=== PATIENT | male | born 1950 | race Caucasian/White ===

== ENCOUNTER 2018-07-02 02:18 | Outpatient (CLI) | payer MEDICARE, BC ==
[~2018-07-02 02:18] MED LIST: ASPI-1265 PO; BACL10TA PO; CETI10TA15 PO; CITA20TA19 PO; FEBU80TA PO; FENO160T13 PO; GABA-532 PO; INSU100V9 SQ; LEVO100T PO; OMEP20CA10 PO; SULF1TAB49 PO
== END 2018-07-02 23:59 | disposition home or self-care (01) ==
LOC: DIABETIC 02:18
PROVIDERS: ATTEND Specialist
DX: E10.9 Type 1 diabetes mellitus without complications (principal)
CPT/HCPCS: G0108

== ENCOUNTER 2019-03-18 10:07 | Observation (INO) | payer MEDICARE, BC ==
[~2019-03-18] VITALS: Ht 175.3 cm; Wt 99.7 kg
[2019-03-18] VITALS (29 sets, daily range): BP systolic 106–179; BP diastolic 51–99
[~2019-03-18 10:07] MED LIST changes: -OMEP20CA10 PO; +OMEP20CA15 PO
[2019-03-18] MEDS ORDERED: famotidine 10mg tablet PO ONE (10:45)
[2019-03-18] MEDS ORDERED: ringers solution, lacted 1,000 ML IV SCH ×2 (10:45→11:42)
[2019-03-18] MEDS ORDERED: famotidine 20mg tablet PO ONE (10:45)
[2019-03-18] MEDS ORDERED: cefazolin/dext.iso 2gm/100ml 100 ML IV ONE (10:45)
[2019-03-18 11:32] LABS: BASOPHILS # (AUTO) 0.1 X10'3 (0-0.2); BASOPHILS % (AUTO) 0.8 % (0-1); EOSINOPHILS # (AUTO) 0.6 X10'3 (0-0.9); EOSINOPHILS % (AUTO) 4.7 % (0-6); LYMPHOCYTES # (AUTO) 1.6 X10'3 (1.1-4.8); LYMPHOCYTES % (AUTO) 12.8 % (21-51); MEAN CORPUSCULAR HEMOGLOBIN 27.3 PG (27.0-31.0); MEAN CORPUSCULAR HGB CONC 32.1 g/dL (33.0-36.5); MEAN CORPUSCULAR VOLUME 85.1 FL (78-98); MEAN PLATELET VOLUME 7.6 FL (7.4-10.4); MONOCYTES # (AUTO) 0.7 X10'3 (0-0.9); MONOCYTES % (AUTO) 5.5 % (2-12); NEUTROPHILS # (AUTO) 9.5 X10'3 (1.8-7.7); NEUTROPHILS % (AUTO) 76.2 % (42-75); PRE OP HEMATOCRIT 30.5 % (42.0-52.0); PRE OP PLATELET COUNT 351 X10'3 (140-440); RED BLOOD COUNT 3.58 X10'6 (4.70-6.10); RED CELL DISTRIBUTION WIDTH 17.3 % (11.5-14.5)
[2019-03-18 11:45] LABS: PRE OP HEMOGLOBIN 9.8 g/dL (14.0-17.9)
[2019-03-18] MEDS ORDERED: ondansetron/PF 4mg/2ml inj IV PRN ×2 (11:45→18:10)
[2019-03-18] MEDS ORDERED: fentaNYL/PF 50MCG/1 ML 2ML syringe IV PRN (11:45)
[2019-03-18] MEDS ORDERED: hydrALAZINE 20mg/ml inj. IV PRN (11:45)
[2019-03-18] MEDS ORDERED: morphine 4 MG/ML inj SYRINge IV PRN (11:45)
[2019-03-18] MEDS ORDERED: labetalol 20mg/4ml (5mg/ml) syringe IV PRN (11:45)
[2019-03-18] MEDS ORDERED: GABA-530 PO (11:52)
[2019-03-18] MEDS ORDERED: AMLO5TAB PO (11:52)
[2019-03-18] MEDS ORDERED: FURO80TA87 PO (11:52)
[2019-03-18] MEDS ORDERED: CLON0.2T PO (11:52)
[2019-03-18] MEDS ORDERED: ALBU6.7H9 INH (11:52)
[2019-03-18] MEDS ORDERED: INSU100V37 SQ (11:52)
[2019-03-18 11:56] LABS: ALBUMIN 3.5 G/DL (3.4-5.0); ALBUMIN/GLOBULIN RATIO 0.8 (1.1-1.5); ALKALINE PHOSPHATASE 71 IU/L (46-116); BLOOD UREA NITROGEN 83 MG/DL (7-18); BUN/CREATININE RATIO 23.2 (5.4-32.0); CALCIUM 8.7 MG/DL (8.5-10.1); CHLORIDE 106 MMOL/L (99-107); CREATININE 3.58 MG/DL (0.60-1.10); PRE OP ALT 22 U/L (30-65); PRE OP ANION GAP 12 (8-16); PRE OP AST 22 U/L (10-37); PRE OP BILIRUB, TOTAL 0.2 MG/DL (0.0-1.0); PRE OP GLUCOSE 113 MG/DL (70-104); PRE OP POTASSIUM 4.2 MMOL/L (3.4-5.1); PRE OP SODIUM 139 MMOL/L (135-145); TOTAL CARBON DIOXIDE 21.2 MMOL/L (24-32); TOTAL PROTEIN 7.9 G/DL (6.4-8.2); eGFR 17 ML/MIN
[2019-03-18] MEDS ORDERED: LANTUS SOLOSTAR (12:04)
[2019-03-18] MEDS ORDERED: BUPIVAcaine/PF 2.5mg/ml (0.25%) 10ml vial ONE (13:03)
[2019-03-18] MEDS ORDERED: BUPIVACAINE liposomal/PF 13.3 MG/ML vial IM ONE (13:03)
[2019-03-18] MEDS ORDERED: MIDAZolam 5mg/5ml vial ONE (13:10)
[2019-03-18] MEDS ORDERED: fentaNYL/PF 50MCG/1 ML 2ML syringe ONE ×2 (13:10→17:28)
--- NOTE | 2019-03-18 14:30 | NUR ---
Received from OR via [facility], accompanied by Anesthesiologist DR FRYE and report given by Anesthesiologist. PT DROWSY, DENIES PAIN, DERMATOME LEVEL L-1. FOAM TAPE COVERING RECTUM. Addendum: 03/18/19 at 1534 by Danna Carpio RN Amended: Links added. Addendum: 03/18/19 at 1540 by Danna Carpio RN LATE ENTRY, PT HAS BILAT NEPHROSTOMY TUBES W/BAGS ATTACHED, EMPTIED IN OR PRIOR TO COMING TO PACU.
[2019-03-18] MEDS ORDERED: gabapentin 400mg capsule PO ONE (16:15)
[2019-03-18] MEDS ORDERED: gabapentin 100mg capsule PO ONE (16:35)
[2019-03-18] MEDS: morphine 4 MG/ML inj SYRINge IV PRN ×2 (17:06→17:18)
[2019-03-18] MEDS: fentaNYL/PF 50MCG/1 ML 2ML syringe IV PRN ×2 (17:31→17:49)
[2019-03-18] MEDS ORDERED: HYDROcodone/acetaminophen 10/325mg tab PO ONE (17:40)
[2019-03-18] MEDS ORDERED: mag hydrox/Alum hydrox/simeth 30ml oral suspension PO PRN (18:10)
[2019-03-18] MEDS ORDERED: dextrose 50%-water 50ml dispensing syringe IV PRN ×2 (18:10)
[2019-03-18] MEDS ORDERED: insulin Lispro (HumaLOG) vial - multi-dose SQ SCH (18:10)
[2019-03-18] MEDS ORDERED: acetaminophen 325mg tablet PO PRN (18:10)
[2019-03-18] MEDS ORDERED: glucagon, human recombinant 1mg kit SUBCUT PRN (18:10)
[2019-03-18] MEDS ORDERED: dextrose ORAL solution 15 GM/59 ML bottle PO PRN ×2 (18:10)
[2019-03-18] MEDS ORDERED: HYDROmorphone 1 mg/ml syringe IV ONE (18:20)
[2019-03-18] MEDS ORDERED: HYDROmorphone 1 mg/ml syringe ONE (18:22)
[2019-03-18] MEDS: HYDROmorphone/NS 1 mg/ml CADD 50 ML IV SCH ×5 (18:43→23:41)
[2019-03-18] MEDS ORDERED: benzocaine/benzethon 30gm ointment RC PRN (19:10)
--- NOTE | 2019-03-18 19:10 | NUR ---
PT VERY PAINFUL, MULTIPLE MEDICATIONS GIVEN, CALL INTO DR GALE AND UPDATED, PT WILL BE ADMITTED FOR PAIN CONTROL, PT SITTING, STANDING, LYING IN BED ATTEMPTING TO ASSIST W/PAIN RELIEF, KIRSTEN YOUSIF STARTED, REPORT CALLED TO RECEIVING RN, PT TRANSPORTED TO ROOM 345B VIA RNEY WITH CELL PHONE AND CLOTHING. Special Issues communicated to receiving nurse. YES. Addendum: 03/18/19 at 1920 by Danna Carpio RN Amended: Links added.
--- NOTE | 2019-03-18 19:20 | NUR ---
Received report from operations supervisor chemical cleaning. Patient to follow shortly.
--- NOTE | 2019-03-18 19:30 | NUR ---
Patient arrived to floor via gurney. Patient alert and declaring he is in pain. Reminded patient to push the button as he has a cadd pump. Patient being noisy and disruptive. Educated patient on controlling his emotions. Patient to room 354C and transferred self to bed. Post op vs initiated.
[2019-03-18] MEDS ORDERED: albuterol 2.5 MG/3 ML nebule NEB PRN (20:05)
--- NOTE | 2019-03-18 20:30 | NUR ---
Sitz bath set up for patient and encouraged patient to stay on it for 20 minutes for comfort .
[2019-03-18] MEDS ORDERED: FEBU40TA3 PO (20:38)
[2019-03-18] MEDS ORDERED: LISI-600 PO (20:45)
[2019-03-18] MEDS ORDERED: insulin glargine (Lantus) pen - multi-dose SQ SCH (21:00)
[2019-03-18] MEDS ORDERED: psyllium seed 3.4 gm packet PO SCH (21:00)
--- NOTE | 2019-03-18 21:00 | NUR ---
Patient has abilateral nephrostomy tubes. The left tube is draining yellow urine and the right tube is draining bloody urine. Patient states that this is his norm as it moves round. Addendum: 03/19/19 at 0601 by Marce Gilmore RN Amended: Links added.
[2019-03-18] MEDS: cloNIDine 0.1 mg tablet PO SCH (23:25)
[2019-03-18] MEDS: gabapentin 100mg capsule PO SCH (23:26)
[2019-03-19] VITALS: BP 153/63
[2019-03-19] MEDS: HYDROmorphone/NS 1 mg/ml CADD 50 ML IV SCH ×5 (01:00→09:00)
--- NOTE | 2019-03-19 05:45 | NUR ---
Unable to keep dressing in place d/t patient and also unable to get post op vs as patient was too restless and agitated during first half of shift. Patient would keep taking off the BP cuff and pulse ox to go sit on the toilet stating pain was too much. Patient was given a sitz bath and Cadd pump demand dose increased x1.5 for demand of 0.3. Patient eventually did go to sleep.
--- NOTE | 2019-03-19 06:23 | NUR ---
Patient in room [facility] 354. I have received report from Marce ARCE and had the opportunity to ask questions and assume patient care.
--- NOTE | 2019-03-19 06:40 | NUR ---
Problems reprioritized. Patient report given, questions answered & plan of care reviewed with [place] ARCE.
--- NOTE | 2019-03-19 06:52 | NUR ---
Patient in room [facility] 354. I have received report from Marce ARCE and had the opportunity to ask questions and assume patient care.
[2019-03-19 07:00] VITALS: BP 140/70
[2019-03-19] MEDS ORDERED: levoTHYROXINE 25mcg tablet PO SCH (07:00)
[2019-03-19 08:00] VITALS: BP 135/62
[2019-03-19] MEDS ORDERED: FEBUXOSTAT PO SCH (08:00)
[2019-03-19] MEDS ORDERED: CITALOpram 10mg tablet PO SCH (08:00)
[2019-03-19] MEDS ORDERED: lisinopril 20mg tablet PO SCH (08:00)
[2019-03-19] MEDS ORDERED: furosemide 40mg tablet PO SCH (08:00)
[2019-03-19] MEDS ORDERED: amLODIPine 5mg tablet PO SCH (08:00)
[2019-03-19] MEDS ORDERED: aspirin 81mg tablet.DR PO SCH (08:00)
[2019-03-19] MEDS ORDERED: LANTUS SCH (08:00)
[2019-03-19] MEDS: gabapentin 100mg capsule PO SCH ×2 (08:26→11:38)
[2019-03-19] MEDS: cloNIDine 0.1 mg tablet PO SCH (08:26)
[2019-03-19] MEDS ORDERED: fenofibrate 145mg tablet PO SCH (08:30)
--- NOTE | 2019-03-19 10:25 | NUR ---
Student Medication Administration: For this medication-pass time frame, all medication were reviewed, dispensed, administered and documented per hospital policy by [facility].
[2019-03-19] MEDS ORDERED: CADD PCA waste documentation MC SCH (11:05)
[2019-03-19 11:17] VITALS: BP 132/50
--- NOTE | 2019-03-19 11:47 | NUR ---
Sitz bath given to patient . DR Aragon in to see patient is for discharge. All cares given and instructions . patient awaiting ride home, appears stable for discharge.
--- NOTE | 2019-03-19 12:03 | NUR ---
patient discharged home vis private car, in stable condition 1200hrs
--- NOTE | 2019-03-21 16:31 | NUR ---
Case Management DC follow up: spoke to pt via telephone: reports, "very painful", able to ambulate, compliant and following all DC after care instructions. Denies SOB, resp distress, NV, dizziness, cp, emergent/acute general pain, HOPSON, blurry vision. pt denies abd pain, bloating, excess blood in stool, s/s to look for that would warrant 9-11/ER visit for evaluation. verbalizes understanding of follow up appts w/PCP/Soy. Understands meds, why prescribed, taking as ordered, no ase noted. all needs met, questions answered at DC no further questions at this time.
== END 2019-03-19 12:05 | disposition home or self-care (01) ==
LOC: PRE-OP 10:07 → SUR 3N 18:18
PROVIDERS: ADMIT Surgery; ATTEND Surgery
DX: K62.0 Anal polyp (principal); K60.3 Anal fistula; A63.0 Anogenital (venereal) warts; K62.6 Ulcer of anus and rectum; K62.89 Other specified diseases of anus and rectum
CPT/HCPCS: 36415; 45330; 46270; 46922; 80053; 82948; 83036; 84443; 85025; 87081; 93005; 96365; 96366; 96375; 96376; A6224; C9290; G0378; J1170; J1815; J2250; J2270; J3010; J3490; J7120; 88305; 88331; A4215; A4618; A6449; A7000

== ENCOUNTER 2019-05-28 07:13 | Day surgery (SDC) | payer MEDICARE, BC ==
[~2019-05-28] VITALS: Ht 175.3 cm; Wt 98.0 kg
[2019-05-28] VITALS (10 sets, daily range): BP systolic 110–124; BP diastolic 56–72
[~2019-05-28 07:13] MED LIST changes: +ALBU6.7H9 INH; -BACL10TA PO; +BUPIVAcaine/PF 2.5 mg/ml (0.25%) 30ml vial ONE; -CETI10TA15 PO; +CIPR-259 PO; +CLON0.2T PO; +FEBU40TA PO; -FEBU80TA PO; +FEXO180T94 PO; +FURO80TA87 PO; +GABA-530 PO; -GABA-532 PO; +HYDR-3972 PO; +INSU100V37 SQ; -INSU100V9 SQ; +LANTUS SOLOSTAR; +LISI-600 PO; -OMEP20CA15 PO; -SULF1TAB49 PO; +albuterol 2.5 MG/3 ML nebule NEB ONE; +cefazolin/dext.iso 2gm/100ml 100 ML IV ONE; +famotidine 20mg tablet PO ONE; +heparin sodium, porcine/PF 100unit/ml 5ML syringe ONE; +ringers solution, lacted 1,000 ML IV SCH
[2019-05-28] MEDS ORDERED: LIDOcaine 1% (10mg/ml) 2ml vial ONE (07:41)
[2019-05-28 08:07] LABS: BASOPHILS # (AUTO) 0.1 X10'3 (0-0.2); BASOPHILS % (AUTO) 1.1 % (0-1); EOSINOPHILS # (AUTO) 0.4 X10'3 (0-0.9); EOSINOPHILS % (AUTO) 4.6 % (0-6); LYMPHOCYTES # (AUTO) 1.2 X10'3 (1.1-4.8); LYMPHOCYTES % (AUTO) 15.1 % (21-51); MEAN CORPUSCULAR HEMOGLOBIN 29.3 PG (27.0-31.0); MEAN CORPUSCULAR VOLUME 88.6 FL (78-98); MEAN PLATELET VOLUME 7.6 FL (7.4-10.4); MONOCYTES # (AUTO) 0.6 X10'3 (0-0.9); MONOCYTES % (AUTO) 8.2 % (2-12); NEUTROPHILS # (AUTO) 5.4 X10'3 (1.8-7.7); PRE OP HEMATOCRIT 26.3 % (42.0-52.0); PRE OP PLATELET COUNT 256 X10'3 (140-440); RED BLOOD COUNT 2.97 X10'6 (4.70-6.10); RED CELL DISTRIBUTION WIDTH 17.1 % (11.5-14.5)
[2019-05-28 08:13] LABS: PRE OP HEMOGLOBIN 8.7 g/dL (14.0-17.9)
[2019-05-28 08:21] LABS: ALBUMIN 2.9 G/DL (3.4-5.0); ALBUMIN/GLOBULIN RATIO 0.7 (1.1-1.5); ALKALINE PHOSPHATASE 61 IU/L (46-116); BLOOD UREA NITROGEN 87 MG/DL (7-18); BUN/CREATININE RATIO 21.3 (5.4-32.0); CALCIUM 7.9 MG/DL (8.5-10.1); CHLORIDE 103 MMOL/L (99-107); CREATININE 4.09 MG/DL (0.60-1.10); PRE OP ALT 13 U/L (30-65); PRE OP ANION GAP 13 (8-16); PRE OP AST 23 U/L (10-37); PRE OP BILIRUB, TOTAL 0.3 MG/DL (0.0-1.0); PRE OP GLUCOSE 122 MG/DL (70-104); PRE OP POTASSIUM 4.4 MMOL/L (3.4-5.1); PRE OP SODIUM 136 MMOL/L (135-145); TOTAL CARBON DIOXIDE 19.6 MMOL/L (24-32); eGFR 15 ML/MIN
[2019-05-28] MEDS ORDERED: normal saline 1000ml 1,000 ML IV SCH (08:25)
[2019-05-28] MEDS ORDERED: sevoflurane 250ml liquid IH ONE (10:04)
[2019-05-28] MEDS ORDERED: fentaNYL/PF 50MCG/1 ML 2ML syringe ONE (10:09)
[2019-05-28] MEDS ORDERED: midazolam 2 mg/2 ml injection ONE (10:15)
[2019-05-28] MEDS ORDERED: ceFAZolin 1000mg inj ONE (10:24)
[2019-05-28] MEDS ORDERED: propofol inj 20 ML IV ONE (10:26)
[2019-05-28] MEDS ORDERED: LIDOcaine 2% (20mg/ml) 5ml vial ONE (10:26)
[2019-05-28] MEDS ORDERED: ondansetron/PF 4mg/2ml inj ONE (10:48)
--- NOTE | 2019-05-28 11:03 | NUR ---
ALL DC CRITERIA HAS BEEN MET. IV TAKEN OUT WITHOUT COMPLICATIONS. ALL INSTRUCTIONS COVERED AND ALL QUESTIONS ANSWERED. DRESSINGS CDI. OUT VIA WHEELCHAIR TO PERSONAL VEHICLE WHERE PATIENT WAS SECURED IN AND DRIVEN HOME BY FAMILY. PATIENT WITH 20G PIV IN LEFT UE. 2 KIDNEY BAGS WITH CLEAR URINE WITHIN, VSS. DENIES PAIN. ANTERIOR LEFT ABDOMEN DRESSING IS CDI WITH PD CATHETER PRESENT. 10L MASK 100% SATURATED. Addendum: 05/28/19 at 1118 by Merrick Henao RN, RN Amended: Links added.
[2019-05-28] MEDS ORDERED: normal saline 1000ml 1,000 ML IV ONE (11:09)
[2019-05-28] MEDS ORDERED: morphine 2 MG/ML inj. syringe IV PRN (11:10)
[2019-05-28] MEDS ORDERED: ondansetron/PF 4mg/2ml inj IV PRN (11:10)
[2019-05-28] MEDS ORDERED: HYDROcodone/acetaminophen 10/325mg tab PO ONE (11:55)
--- NOTE | 2019-05-28 12:33 | NUR ---
ALL DC CRITERIA HAS BEEN MET. IV TAKEN OUT WITHOUT COMPLICATIONS. ALL INSTRUCTIONS COVERED AND ALL QUESTIONS ANSWERED. DRESSINGS CDI. OUT VIA WHEELCHAIR TO PERSONAL VEHICLE WHERE PATIENT WAS SECURED IN AND DRIVEN HOME BY FAMILY. PATIENT ABDOMINAL DRESSING (L) IS STILL CDI. VSS. PATIENT REQUESTS TO GO HOME AT THIS TIME. DRESSING WITH ASSIST AND TAKEN HOME BY SIG OTHER. INFORMED PATIENT I WOULD CALL HIM IN REGARDS TO SCRIPT THAT IS TO BE PROVIEDED BY MD DIAZ. VSS. Addendum: 05/28/19 at 1236 by Merrick Henao RN, RN Amended: Links added.
== END 2019-05-28 12:23 | disposition home or self-care (01) ==
LOC: PAS 07:13
PROVIDERS: ATTEND Surgery
DX: I12.0 Hypertensive chronic kidney disease with stage 5 chronic kidney disease or end stage renal disease (principal); N18.6 End stage renal disease; E66.9 Obesity, unspecified; F17.200 Nicotine dependence, unspecified, uncomplicated; E03.9 Hypothyroidism, unspecified; E11.22 Type 2 diabetes mellitus with diabetic chronic kidney disease; I73.9 Peripheral vascular disease, unspecified; D64.9 Anemia, unspecified; M10.9 Gout, unspecified; M19.90 Unspecified osteoarthritis, unspecified site; Z79.899 Other long term (current) drug therapy; Z88.2 Allergy status to sulfonamides; Z86.73 Personal history of transient ischemic attack (TIA), and cerebral infarction without residual deficits; Z80.9 Family history of malignant neoplasm, unspecified; Z98.890 Other specified postprocedural states
CPT/HCPCS: 36415; 49421; 80053; 82948; 85025; C1750; J0690; J1642; J2001; J2250; J2270; J2405; J2704; J3010; J3490; J7030; J7120; A4215; A4618; A6449; A7000

== ENCOUNTER 2019-07-16 10:47 | Day surgery (SDC) | payer MEDICARE, BC ==
[2019-07-16] VITALS (7 sets, daily range): BP systolic 118–145; BP diastolic 71–84
[~2019-07-16] VITALS: Ht 175.3 cm; Wt 97.5 kg
[~2019-07-16 10:47] MED LIST changes: -BUPIVAcaine/PF 2.5 mg/ml (0.25%) 30ml vial ONE; -CIPR-259 PO; +ceFOXitin sod/dextrose 2g/50ml 50 ML IV ONE; -cefazolin/dext.iso 2gm/100ml 100 ML IV ONE; -heparin sodium, porcine/PF 100unit/ml 5ML syringe ONE
[2019-07-16] MEDS ORDERED: albuterol 2.5 MG/3 ML nebule NEB ONE (11:25)
[2019-07-16 12:30] LABS: BASOPHILS # (AUTO) 0.1 X10'3 (0-0.2); EOSINOPHILS # (AUTO) 0.7 X10'3 (0-0.9); EOSINOPHILS % (AUTO) 8.2 % (0-6); LYMPHOCYTES # (AUTO) 2.2 X10'3 (1.1-4.8); LYMPHOCYTES % (AUTO) 24.8 % (21-51); MEAN CORPUSCULAR HEMOGLOBIN 28.3 PG (27.0-31.0); MEAN CORPUSCULAR HGB CONC 32.4 g/dL (33.0-36.5); MEAN CORPUSCULAR VOLUME 87.3 FL (78-98); MEAN PLATELET VOLUME 7.7 FL (7.4-10.4); MONOCYTES # (AUTO) 0.6 X10'3 (0-0.9); MONOCYTES % (AUTO) 6.5 % (2-12); NEUTROPHILS # (AUTO) 5.3 X10'3 (1.8-7.7); NEUTROPHILS % (AUTO) 59.5 % (42-75); PRE OP HEMATOCRIT 32.2 % (42.0-52.0); PRE OP PLATELET COUNT 321 X10'3 (140-440); RED BLOOD COUNT 3.69 X10'6 (4.70-6.10); RED CELL DISTRIBUTION WIDTH 17.2 % (11.5-14.5)
[2019-07-16 12:33] LABS: PRE OP HEMOGLOBIN 10.4 g/dL (14.0-17.9)
[2019-07-16 12:42] LABS: ALBUMIN 3.2 G/DL (3.4-5.0); ALBUMIN/GLOBULIN RATIO 0.7 (1.1-1.5); ALKALINE PHOSPHATASE 77 IU/L (46-116); BLOOD UREA NITROGEN 65 MG/DL (7-18); BUN/CREATININE RATIO 17.8 (5.4-32.0); CALCIUM 8.2 MG/DL (8.5-10.1); CHLORIDE 102 MMOL/L (99-107); CREATININE 3.66 MG/DL (0.60-1.10); PRE OP ALT 12 U/L (30-65); PRE OP ANION GAP 13 (8-16); PRE OP AST 29 U/L (10-37); PRE OP BILIRUB, TOTAL 0.4 MG/DL (0.0-1.0); PRE OP GLUCOSE 103 MG/DL (70-104); PRE OP POTASSIUM 4.3 MMOL/L (3.4-5.1); PRE OP SODIUM 137 MMOL/L (135-145); TOTAL PROTEIN 7.6 G/DL (6.4-8.2); eGFR 17 ML/MIN
[2019-07-16] MEDS ORDERED: sevoflurane 250ml liquid IH ONE (14:56)
[2019-07-16] MEDS ORDERED: fentaNYL/PF 50MCG/1 ML 2ML syringe ONE (14:58)
[2019-07-16] MEDS ORDERED: midazolam 2 mg/2 ml injection ONE (15:26)
[2019-07-16] MEDS ORDERED: bacitracin 15gm ointment TP ONE (15:44)
[2019-07-16] MEDS ORDERED: ondansetron/PF 4mg/2ml inj ONE (15:54)
[2019-07-16] MEDS ORDERED: propofol inj 20 ML IV ONE ×2 (15:54)
[2019-07-16] MEDS ORDERED: LIDOcaine 2% (20mg/ml) 5ml vial ONE (15:54)
[2019-07-16] MEDS ORDERED: dexamethasone sod phosphate 4mg/ml inj. ONE (15:54)
--- NOTE | 2019-07-16 16:00 | NUR ---
Received from OR via BED, accompanied by Anesthesiologist DR ECKERT-- and report given by Anesthesiolgist. PATIENT A&OX4, DENIES PAIN, V/S WNL, NEUROVASCULAR CHECKS INTACT, 20G PIV LUE, SCD ON, BANDAIDS TO ABDOMEN CDI AND UROSTOMY TUBES 500CC OUT DRAINED IN OR
[2019-07-16] MEDS ORDERED: ondansetron/PF 4mg/2ml inj IV PRN (16:15)
[2019-07-16] MEDS ORDERED: proCHLORperazine 10 MG/2 ml inj IV PRN (16:15)
[2019-07-16] MEDS ORDERED: acetaminophen 1,000mg/100ml IV 100 ML IV PRN (16:15)
[2019-07-16] MEDS ORDERED: HYDROmorphone inj. 0.5 MG/0.5 ML DISP.SYRIN IV PRN ×2 (16:15)
[2019-07-16] MEDS ORDERED: morphine 2 MG/ML inj. syringe IV PRN (16:15)
[2019-07-16] MEDS ORDERED: morphine 4 MG/ML inj SYRINge IV PRN (16:15)
[2019-07-16] MEDS ORDERED: meperidine/PF 25mg/ml syringe IV PRN (16:15)
[2019-07-16] MEDS ORDERED: normal saline 1000ml 1,000 ML IV ONE (16:15)
--- NOTE | 2019-07-16 16:50 | NUR ---
PATIENT A&OX4, DENIES PAIN, V/S WNL, NEUROVASCULAR CHECKS INTACT, 20G PIV LUE D/C, SCD OFF, BANDAIDS TO ABDOMEN CDI AND UROSTOMY TUBES . SCRIPT SENT TO [facility] FOR Anand EATON HAVE REVIEWED D/C INSTRUCTIONS WITH PATIENT AND FAMILY AND THEY HAVE VERBALIZED UNDERSTANDING. PATIENT D/C HOME WITH ALL BELONGINGS AND FAMILY GAVE TRANSPORT HOME.
== END 2019-07-16 16:40 | disposition home or self-care (01) ==
LOC: PAS 10:47
PROVIDERS: ATTEND Surgery
DX: Z49.02 Encounter for fitting and adjustment of peritoneal dialysis catheter (principal); M10.9 Gout, unspecified; I12.0 Hypertensive chronic kidney disease with stage 5 chronic kidney disease or end stage renal disease; E11.22 Type 2 diabetes mellitus with diabetic chronic kidney disease; N18.6 End stage renal disease; E03.9 Hypothyroidism, unspecified; Z85.51 Personal history of malignant neoplasm of bladder; F17.210 Nicotine dependence, cigarettes, uncomplicated; Z79.899 Other long term (current) drug therapy; Z79.82 Long term (current) use of aspirin; Z98.890 Other specified postprocedural states
CPT/HCPCS: 36415; 49422; 80053; 82948; 85025; 94640; 94760; J0694; J1100; J2001; J2250; J2405; J2704; J3010; A4215; A4618; A7000; J7120

== ENCOUNTER 2019-10-10 11:28 | Day surgery (SDC) | payer MEDICARE, BC ==
[~2019-10-10] VITALS: Ht 175.3 cm; Wt 91.8 kg
[~2019-10-10 11:28] MED LIST changes: -albuterol 2.5 MG/3 ML nebule NEB ONE; -ceFOXitin sod/dextrose 2g/50ml 50 ML IV ONE; -famotidine 20mg tablet PO ONE; -ringers solution, lacted 1,000 ML IV SCH
[2019-10-10] MEDS ORDERED: normal saline 1000ml 1,000 ML IV PRN (11:45)
[2019-10-10] MEDS ORDERED: cefazolin/dext.iso 2gm/50ml 50 ML IV ONE (11:45)
[2019-10-10 12:00] VITALS: BP 95/53
--- NOTE | 2019-10-10 12:46 | NUR ---
Pt frequently dozes off in between questioning. This RN educated pt on fall reduction program, pt declined nonskid socks & declined reclining in bed. This RN reiterated importance of being in bed to reduce fall risk, pt again declined to get in to bed. Will continue to frequently round. Call light within reach, pt uses call light.
[2019-10-10] MEDS ORDERED: fentaNYL/PF 50MCG/1 ML 2ML syringe ONE ×2 (13:36→13:54)
[2019-10-10] MEDS ORDERED: midazolam 2 mg/2 ml injection ONE (13:36)
[2019-10-10] MEDS ORDERED: iohexol 300 MG/1 ML 50ml polymer ONE (13:36)
[2019-10-10 14:15] VITALS: BP 98/27
[2019-10-10 14:30] VITALS: BP 104/38
[2019-10-10 14:31] VITALS: BP 121/55
--- NOTE | 2019-10-10 16:20 | NUR ---
Bilateral nephro-urostomy tubes present. Urine present in bilateral leg bags. Addendum: 10/10/19 at 1624 by Tory Kamara RN Amended: Links added.
== END 2019-10-10 14:40 | disposition home or self-care (01) ==
LOC: SSTAY O 11:28
PROVIDERS: ATTEND Radiology Vascular & Interventional Radiology
DX: T83.022A Displacement of nephrostomy catheter, initial encounter (principal); Z79.899 Other long term (current) drug therapy; Z79.4 Long term (current) use of insulin; Y83.8 Other surgical procedures as the cause of abnormal reaction of the patient, or of later complication, without mention of misadventure at the time of the procedure; Y92.89 Other specified places as the place of occurrence of the external cause
CPT/HCPCS: 50387; 82948; 99152; C1729; C1769; J2250; J3010; Q9967

== ENCOUNTER 2020-02-19 11:27 | Day surgery (SDC) | payer MEDICARE, BC ==
[2020-02-19] VITALS (7 sets, daily range): BP systolic 100–139; BP diastolic 51–79
[~2020-02-19] VITALS: Ht 172.7 cm; Wt 76.2 kg
[~2020-02-19 11:27] MED LIST changes: -ASPI-1265 PO; +ATOR-2 PO; +CHOL100017 PO; -CITA20TA19 PO; +CITA20TA26 PO; -CLON0.2T PO; -FEBU40TA PO; -FENO160T13 PO; +FERR325T7 PO; -FEXO180T94 PO; +FURO80TA3 PO; -FURO80TA87 PO; -GABA-530 PO; +GABA300C PO; +GLIP5TAB13 PO; -HYDR-3972 PO; -INSU100V37 SQ; -LANTUS SOLOSTAR; -LEVO100T PO; +LEVO50TA8 PO; +METO-384 PO; +POTA20TA19 PO; +TRAM50TA2 PO; +VIT1TABL50 PO
[2020-02-19] MEDS ORDERED: normal saline 1000ml 1,000 ML IV PRN (12:00)
[2020-02-19] MEDS ORDERED: ceFAZolin/D5W- 1GM premix 50 ML IV ONE (12:00)
[2020-02-19] MEDS ORDERED: iohexol 300 MG/1 ML 50ml polymer ONE (12:11)
[2020-02-19] MEDS ORDERED: LIDOcaine 1%/PF 5ML 10 MG/ML VIAL ONE (12:12)
[2020-02-19] MEDS ORDERED: fentaNYL/PF 50MCG/1 ML 2ML syringe ONE (12:36)
[2020-02-19] MEDS ORDERED: midazolam 2 mg/2 ml injection ONE (12:37)
== END 2020-02-19 14:47 ==
LOC: SSTAY O 11:27
PROVIDERS: ATTEND Radiology Vascular & Interventional Radiology
DX: Z43.6 Encounter for attention to other artificial openings of urinary tract (principal); Z85.51 Personal history of malignant neoplasm of bladder; E13.42 Other specified diabetes mellitus with diabetic polyneuropathy; I12.9 Hypertensive chronic kidney disease with stage 1 through stage 4 chronic kidney disease, or unspecified chronic kidney disease; N18.9 Chronic kidney disease, unspecified; E78.5 Hyperlipidemia, unspecified
CPT/HCPCS: 50435; 77001; C1729; C1769; J2250; J3010; Q9967; 50387; 99152; 99153